=== PATIENT | male | born 1965 | race Caucasian/White ===

== ENCOUNTER 2017-08-06 08:22 | Day surgery (SDC) | payer BC ==
[~2017-08-06] VITALS: Ht 170.2 cm; Wt 56.5 kg
[2017-08-06 08:21] VITALS: BP 157/84; PULSE 73; TEMP 97.7
[2017-08-06] MEDS ORDERED: NORVASC 10MG10 MG PO (08:32)
[2017-08-06] MEDS ORDERED: DESYREL 50MG50 MG PO (08:32)
[2017-08-06 09:27] VITALS: BP 124/78; PULSE 83
[2017-08-06 09:42] VITALS: BP 118/67; PULSE 83
[2017-08-06 09:57] VITALS: BP 106/82; PULSE 85
[2017-08-06 10:13] VITALS: BP 114/69; PULSE 78
== END 2017-08-06 10:32 | disposition home or self-care (01) ==
LOC: SDCO 08:22
DX: K21.0 Gastro-esophageal reflux disease with esophagitis (principal); K29.80 Duodenitis without bleeding; I10 Essential (primary) hypertension; C44.42 Squamous cell carcinoma of skin of scalp and neck; M19.90 Unspecified osteoarthritis, unspecified site; F32.9 Major depressive disorder, single episode, unspecified; F17.210 Nicotine dependence, cigarettes, uncomplicated
CPT/HCPCS: J2704; J7120

== ENCOUNTER 2017-08-08 13:23 | Day surgery (SDC) | payer BC ==
[~2017-08-08] VITALS: Ht 167.6 cm; Wt 56.3 kg
[2017-08-08] VITALS (9 sets, daily range): BP systolic 110–156; BP diastolic 65–85; PULSE 72–95; TEMP 98.2–98.4
[~2017-08-08 13:23] MED LIST: DESYREL 50MG50 MG PO; NORVASC 10MG10 MG PO
[2017-08-08] MEDS ORDERED: BIAXIN 500MG T500 MG PO (13:42)
[2017-08-08] MEDS ORDERED: PREVACID 30MG30 M1 PO (13:47)
[2017-08-08] MEDS ORDERED: AMOXICILLIN 50500 MG PO (13:47)
== END 2017-08-08 22:45 | disposition home or self-care (01) ==
LOC: SDCO 13:23 → SURG 19:05 → SDCO 22:45
DX: K02.9 Dental caries, unspecified (principal); C77.0 Secondary and unspecified malignant neoplasm of lymph nodes of head, face and neck; I10 Essential (primary) hypertension; R63.4 Abnormal weight loss; J44.9 Chronic obstructive pulmonary disease, unspecified; F32.1 Major depressive disorder, single episode, moderate; F10.21 Alcohol dependence, in remission; R59.0 Localized enlarged lymph nodes; F51.04 Psychophysiologic insomnia; R59.1 Generalized enlarged lymph nodes; F17.210 Nicotine dependence, cigarettes, uncomplicated; M19.042 Primary osteoarthritis, left hand; M19.041 Primary osteoarthritis, right hand; Z92.3 Personal history of irradiation
CPT/HCPCS: OP; J0295; J1100; J1885; J2405; J2704; J3010; J7030; J7120

== ENCOUNTER → 2018-01-08 | Outpatient (REF) ==
[~2018-01-08] MED LIST changes: +AMOXICILLIN 50500 MG PO; +BIAXIN 500MG T500 MG PO; +PREVACID 30MG30 M1 PO
[2018-01-08 17:13] LABS: BASO % 0.3 % (0.0-2.0); EOS % 0.3 % (0-4.0); GRAN # 9.3 (1.4-6.5); GRAN % 80.2 % (42.2-75.2); LYMPH # 0.9 (1.2-3.4); LYMPH % 7.5 % (20.0-51.0); MEAN CELL VOLUME 94 fl (80.0-100.0); MEAN CORPUSCULAR HGB CONC 35 g/dl (33.0-37.0); MEAN PLATELET VOLUME 8.8 fl (7.4-10.4); MONO # 1.3 (0.1-0.6); MONO % 11.3 % (1.7-9.3); PLATELET COUNT 193 K/mm3 (130-400); RED BLOOD COUNT 3.54 M/mm3 (4.20-5.60); REDCELL DISTRIBUTION WIDTH-CV 12.4 % (11.5-14.5)
[2018-01-08 17:16] LABS: HEMATOCRIT 33.1 % (42.0-52.0); HEMOGLOBIN 11.7 g/dl (13.5-18.0); MEAN CORPUSCULAR HEMOGLOBIN 33 pg (27.0-31.0)
== END ==
LOC: ZMSC 17:07
PROVIDERS: Otolaryngology
DX: Z01.89 Encounter for other specified special examinations (principal)